=== PATIENT | female | born 1950 | race Caucasian/White ===

== ENCOUNTER 2023-05-19 22:07 | Emergency (ER) | payer MEDICARE ==
[~2023-05-19] VITALS: Ht 157.5 cm; Wt 70.3 kg
[2023-05-19 23:26] LABS: BASOPHILS % (AUTO) 0.7 % (0.0-2.0); EOSINOPHILS # (AUTO) 0.2 K/uL (0.0-0.7); EOSINOPHILS % (AUTO) 4.1 % (0.0-7.0); HEMATOCRIT 33.6 % (31.2-41.9); HEMOGLOBIN 10.9 g/dL (10.9-14.3); LYMPHOCYTES % (AUTO) 15.8 % (20.5-51.5); MEAN CORPUSCULAR HEMOGLOBIN 30.3 uug (24.7-32.8); MEAN CORPUSCULAR HGB CONC 32 g/dL (32.3-35.6); MEAN CORPUSCULAR VOLUME 93.5 fL (75.5-95.3); MONOCYTES # (AUTO) 0.7 K/uL (0.1-1.30); MONOCYTES % (AUTO) 11.4 % (0.0-11.0); NEUTROPHILS # (AUTO) 4.1 K/uL (1.8-8.9); PLATELET COUNT (AUTO) 209 K/uL (179-408); RED CELL DISTRIBUTION WIDTH 14.4 % (12.3-17.7)
[2023-05-19 23:28] LABS: DIFFERENTIAL COMMENT 1
[2023-05-19 23:31] LABS: CALCIUM 8.7 mg/dL (8.5-10.1); CARBON DIOXIDE 29 mmol/L (21-32); CHLORIDE 104 mmol/L (98-107); CREATININE 1.5 mg/dL (0.6-1.3); GLUCOSE 129 mg/dL (74-106); POTASSIUM 3.8 mmol/L (3.5-5.1); SODIUM SERUM 141 mmol/L (136-145); UREA NITROGEN, BLOOD 25 mg/dL (7-18)
[2023-05-19 23:36] LABS: ALANINE AMINOTRANSFERASE 13 U/L (14-59); ALBUMIN 3.2 g/dL (3.4-5.0); ALKALINE PHOSPHATASE 68 U/L (50-136); ASPARTATE AMINOTRANSFERASE 7 U/L (15-37); BILIRUBIN,DIRECT 0.1 mg/dL (0.0-0.2); BILIRUBIN,TOTAL 0.3 mg/dL (0.2-1.0); TOTAL PROTEIN, SERUM 6.4 g/dL (6.4-8.2)
[2023-05-20 00:21] LABS: *OCCULT BLOOD STOOL POSITIVE (NEGATIVE)
[2023-05-20 01:17] VITALS: BP 122/70; TEMP 98; O2SAT 99
== END 2023-05-20 00:56 | disposition home or self-care (01) ==
LOC: ER 22:17
DX: N81.4 Uterovaginal prolapse, unspecified (principal); G89.29 Other chronic pain; R10.2 Pelvic and perineal pain; K92.2 Gastrointestinal hemorrhage, unspecified; E03.9 Hypothyroidism, unspecified
CPT/HCPCS: 36415; 85025; A4663